=== PATIENT | female | born 1990 | race Caucasian/White ===

== ENCOUNTER → 2018-01-26 | Outpatient (CLI) | payer MEDICAID | LOC: FIMAGING 12:05 | PROVIDERS: ATTEND Family Medicine | DX: R92.8 Other abnormal and inconclusive findings on diagnostic imaging of breast (principal); Z80.3 Family history of malignant neoplasm of breast ==

== ENCOUNTER 2018-04-01 07:50 | Day surgery (SDC) | payer MEDICAID ==
--- NOTE | 2018-03-24 15:31 | GHP ---
[f rep st] HISTORY AND PHYSICAL DATE OF ADMISSION: 04/01/2018 ADMITTING DIAGNOSES: 1. Pelvic pain. 2. Dysmenorrhea. HISTORY OF PRESENT ILLNESS: The patient is a 27-year-old 3, para 3-0-0- 3, who presented to me about 6 months ago for ER followup. She was seen in August of 2017 secondary to worsening bilateral lower abdominal pelvic pain. She states she had pain for 2-1/2 months' duration; it was intermittent and dull and then became constant, sharp and stabbing, and that is what sent her to the emergency room. She had an ultrasound done at [facility] which was normal, as well as blood work, urine, gonorrhea and chlamydia cultures, per patient. There were no records available at the time of the visit. The patient was seen in my office and states pain is about 7/10. She is taking ibuprofen with some relief. She had a Mirena IUD in the past; it was embedded and had to be removed. She admits she cannot remember to take control pills. Her cycles are regular; however, they are heavy. She experiences large clots and heavy flow for 3 days and then spotting for the last 2 days. She does admit to painful cramping throughout the whole menstrual cycle. Discussed at that time keeping a menstrual diary and monitoring the pain. Counseled on endometriosis, which we discussed as a surgical diagnosis, usually treated in conjunction with hormonal treatment, IUD versus OCPs, and surgery with fulguration of endometrial implants. The patient is interested in trying an IUD again. Recommend, Kyleena IUD be placed under ultrasound guidance, and if no improvement in symptoms over 3-6 months, consider a diagnostic laparoscopy. Kyleena IUD was placed under ultrasound guidance without any difficulty in September2017. The patient then presented to the office in January of 2018, and noticed her pain was improved following insertion of Kyleena x 2 months and then over the last 2-3 months the pelvic pain is back again. The pain is normally only during her cycles, but now it is lasting for 2-3 weeks each month. Pain is located bilaterally in lower abdomen and is localized with no radiation. She has only taken ibuprofen and Tylenol. She admits to having cycles with Kyleena, but they are lighther, and also notes increased acne. The patient desire surgery at this time to see what exactly is the cause of her pain , and to see if it is truly endometriosis. The patient has a history of prior C -section x3; also discussed there can be pain with scar tissue. PAST OB HISTORY: She had in 2006, 2012, and 2014. She also had a bilateral tubal ligation at the time of last in 2014. ONLINE MARKETER HISTORY: Age of menarche 10-11 years of age. Cycles are regular, every 28 days for about 5-6 days. Heavy flow with painful cramps. Patient denies history of any exposure to sexually transmitted diseases. She has had an abnormal Pap smear; she had a colposcopy, but no treatment. MEDICATIONS: Include ProAir, Tylenol, Ibuprofen as needed. ALLERGIES: Prednisone. PAST MEDICAL HISTORY: Remarkable for asthma, depression, migraine headaches, chronic pelvic pain. PAST SURGICAL HISTORY: x3 and bilateral tubal ligation at the time of the third . FAMILY HISTORY: Mother with breast and bladder cancer, age 60. SOCIAL HISTORY: The patient is . She lives with her and 3 children. She admits to smoking half pack a day for 12 years, and is not ready to quit. She drinks alcohol 2 times per month and admits to marijuana use once a month. REVIEW OF SYSTEMS: 10-point review of systems is negative. Pertinent positives noted in HPI. LABS: Hemoglobin is 14.5, hematocrit 43.6. PHYSICAL EXAMINATION: VITAL SIGNS: On admission, vital signs are stable. Patient is afebrile. GENERAL: Well-nourished, well-developed female. Alert and oriented x3. CARDIOVASCULAR: Regular rate and rhythm. LUNGS: Clear to auscultation bilaterally. SKIN: Warm, dry without rash. NEURO: Grossly intact. ABDOMEN: Soft, nontender, nondistended. Pfannenstiel incision well healed. PELVIC: Exam is deferred, patient on menses. EXTREMITIES: Normal to inspection without calf tenderness or edema. ASSESSMENT/PLAN: Patient is a 27-year-old 3, para 3-0-0-3, with chronic pelvic pain and dysmenorrhea. 1. Discussed surgery, diagnostic laparoscopy, its limitations, nothing by mouth status, as well as postoperative recovery. 2. Patient is aware that her pain may not be improved or resolved after the surgery and wants to proceed. 3. Surgical consents were obtained. Discussed the risks, benefits, and alternatives, including, but not limited to, bleeding, infection, and damage to surrounding organs. 4. Patient understands all risks and wants to proceed with surgery. 5. Smoking cessation discussed and encouraged prior to surgery. 5. Antibiotics talent acquisition lead to operating room. 6. Sequential compression devices for deep venous thrombosis prophylaxis. /[id number]/MODL MTDD
[2018-04-01] MEDS ORDERED: ceFAZolin 2 GM/DEXTROSE 100 ML IV ONE (08:22)
[2018-04-01] MEDS ORDERED: LIDOCAINE 1% 2 ML INJ ID PRN (08:23)
[2018-04-01] MEDS ORDERED: LR 1,000 ML IV ONE (08:23)
[2018-04-01] MEDS ORDERED: BUPIVACAINE 0.5% 30 ML SDV ONE (08:40)
--- NOTE | 2018-04-01 09:33 | PDANEPAE ---
ANE History of Present Illness Dysmenorrhea, pelvic pain. Here for diagnostic lap and salpingectomy ANE Past Medical History - Cardiovascular History Hx Hypertension: No Hx Arrhythmias: No Hx Chest Pain: No Hx Coronary Artery / Peripheral Vascular Disease: No Hx CHF / Valvular Disease: No Hx Palpitations: No - Pulmonary History Hx COPD: No Hx Asthma/Reactive Airway Disease: Yes Hx Recent Upper Respiratory Infection: No Hx Oxygen in Use at Home: No Hx Sleep Apnea: Yes Sleep Apnea Screening Result - Last Documented: Positive Pulmonary History Comment: INHALER. POS MONTY - NO CPAP - Neurologic History Hx Cerebrovascular Accident: No Hx Seizures: No Hx Dementia: No Neurologic History Comment: MIGRAINES - Endocrine History Hx Diabetes: No - Renal History Hx Renal Disorders: No - Liver History Hx Hepatic Disorders: No - Neurological & Psychiatric Hx Hx Neurological and Psychiatric Disorders: Yes Neurological / Psychiatric History Comment: ANXIETY/DEPRESSION - Cancer History Hx Cancer: No - Congenital Disorder History Hx Congenital Disorders: No - GI History Hx Gastrointestinal Disorders: No - Other Health History Other Health History: NEG - Chronic Pain History Chronic Pain: Yes (UTERINE PAIN) - Surgical History Prior Surgeries: 3 C-SECTIONS ANE Review of Systems Review of Systems: - Exercise capacity METS (RN): 5 METS ANE Patient History - Allergies Allergies/Adverse Reactions: prednisone Allergy (Verified 03/23/18 12:10) Rash - Home Medications Home Medications: Proair Hfa 03/23/18 [Last Taken Unknown] Tylenol 03/23/18 [Last Taken 03/31/18 22:00] - NPO status NPO Since - Liquids (Date): 03/31/18 NPO Since - Liquids (Time): 23:00 NPO Since - Solids (Date): 03/31/18 NPO Since - Solids (Time): 18:00 - Smoking Hx Smoking Status: Heavy smoker - Family Anes Hx Family Hx Anesthesia Complications: NEG ANE Labs/Vital Signs - Vital Signs Blood Pressure: 104/66 Heart Rate: 86 Respiratory Rate: 16 O2 Sat (%): 95 Height: 157.48 cm Weight: 83.915 kg ANE Physical Exam - Airway Neck exam: FROM Mallampati Score: Class 1 Mouth exam: normal dental/mouth exam - Pulmonary Pulmonary: no respiratory distress, no rales or rhonchi - Cardiovascular Cardiovascular: regular rate and rhythym, no murmur, rub, or gallop - ASA Status ASA Status: II ANE Anesthesia Plan Anesthesia Plan: general endotracheal anesthesia
[2018-04-01] MEDS ORDERED: MIDAZOLAM 2 MG/2 ML VIAL IVP ONE (09:34)
--- NOTE | 2018-04-01 09:41 | PDHPUP ---
History & Physical Update H&P update statement: This history and physical update is based on an assessment of the patient which was completed after admission or registration (within 24 hours), but prior to the surgery/procedure. H&P update: H&P reviewed & patient examined, no change in patient's condition since H&P completed
[2018-04-01] MEDS ORDERED: DEXAMETHASONE 4 MG/ML VIAL ONE (09:52)
[2018-04-01] MEDS ORDERED: LIDOCAINE 2% 100 MG/5 ML SYR ONE (09:52)
[2018-04-01] MEDS ORDERED: fentaNYL 250 MCG/5 ML INJ ONE (09:52)
[2018-04-01] MEDS ORDERED: ONDANSETRON 4 MG/2 ML VIAL ONE (09:52)
[2018-04-01] MEDS ORDERED: ROCURONIUM 50 MG/5 ML VIAL ONE (09:52)
[2018-04-01] MEDS ORDERED: PROPOFOL 200 MG/20 ML VIAL ONE ×2 (09:52→11:47)
[2018-04-01] MEDS ORDERED: PHENYLEPHRINE 10 MG/ML SDV ONE (09:53)
[2018-04-01] MEDS ORDERED: KETOROLAC 30 MG/1 ML SDV ONE (09:54)
[2018-04-01] MEDS ORDERED: HYDROmorphONE/DILAUDID 2 MG/ML INJ ONE (11:46)
--- NOTE | 2018-04-01 11:55 | POSTOPPROG ---
Post Op Note Date of Operation: 04/01/18 Surgeon: Amrita Gordon Personal Lines Appraiser: Becca GALLEGOS Anesthesiologist: Suri Navarro Anesthesia: GET(General Endotracheal) Pre-op Diagnosis: Dysmenorrhea; Pelvic pain Post-op Diagnosis: Dysmenorrhea; Pelvic pain; Endometriosis; Pelvic adhesions Indication: 27 y/o with h/o dysmenorrhea and pelvic pain Procedure: Dx Laparoscopy; PRINCESS; Fulguration of endometriosis Findings: Endo implants b/l USL & cul-de-sac; omental curtain to ant abd wall Inf/Abcess present in the surg proc area at time of surgery?: No Depth: Organ Space EBL: Minimal (20cc) Total fluids administered: 1300 cc LR UO: 250 cc clear urine at the end Complications: None Specimen(s): None
[2018-04-01] MEDS ORDERED: LR 500 ML IV PRN (11:59)
[2018-04-01] MEDS ORDERED: oxyCODONE IR 5 MG TAB PO PRN (11:59)
[2018-04-01] MEDS ORDERED: ALBUTEROL 3 ML DEYVIAL IH PRN (11:59)
[2018-04-01] MEDS ORDERED: MEPERIDINE 25 MG/0.5 ML AMP IVP PRN (11:59)
[2018-04-01] MEDS ORDERED: HYDROmorphONE/DILAUDID 2 MG/ML INJ IVP PRN (11:59)
[2018-04-01] MEDS ORDERED: ACETAMINOPHEN 500 MG TAB PO PRN (11:59)
[2018-04-01] MEDS ORDERED: PROMETHAZINE HCL 25 MG/ML INJ IVP PRN (11:59)
[2018-04-01] MEDS ORDERED: fentaNYL 100 MCG/2 ML INJ IVP PRN (11:59)
[2018-04-01] MEDS ORDERED: NALOXONE HCL 0.4 MG/ML INJ IVP PRN (11:59)
--- NOTE | 2018-04-01 12:00 | POSTANESTH ---
Post Anesthetic Evaluation Cardiovascular Status: Normal, Stable Respiratory Status: Normal, Stable Level of Consciousness/Mental Status: Can Participate in Eval, Moderately Sleepy Pain Control: Adequate, Prn Tx Ordered Nausea/Vomiting Control: Adequate, Prn Tx Ordered Complications Possibly Related to Anesthesia: None Noted
[2018-04-01] MEDS ORDERED: DIAZEPAM 5 MG/ML 1 ML SYR ONE (12:20)
[2018-04-01] MEDS: DIAZEPAM 5 MG/ML 1 ML SYR IVP PRN ×2 (13:02→13:17)
--- NOTE | 2018-04-01 13:41 | GOP ---
[f rep st] OPERATIVE REPORT DATE OF OPERATION: 04/01/2018 SURGEON: Amrita Gordon DO AUTOMATION TESTER: EL Bran ANESTHESIA: General endotracheal. ANESTHESIOLOGIST: Han Navarro DO PREOPERATIVE DIAGNOSIS: 1. Dysmenorrhea. 2. Pelvic pain. POSTOPERATIVE DIAGNOSIS: 1. Dysmenorrhea. 2. Pelvic pain. 3. Pelvic adhesions, omental curtain. 4. Endometriosis. PROCEDURE PERFORMED: 1. Diagnostic laparoscopy. 2. Lysis of adhesions. 3. Fulguration of endometriosis. FINDINGS: Grossly normal-appearing uterus, bilateral tubes and ovaries. There were endometrial implants visualized on the bilateral uterosacral ligaments, as well as implants in the posterior cul-de-sac. There were adhesions noted in the anterior cul-de-sac near the bladder, secondary to previous x3. The upper abdomen, liver and gallbladder appeared normal. Appendix appeared tethered to sidewall. SPECIMENS: None. ESTIMATED BLOOD LOSS: 20 cc. INDICATIONS: Patient is a 27-year-old, G3, P3 with history of dysmenorrhea and pelvic pain. The patient had Kyleena IUD placed about 6 months ago, and noted improvement in her pain for about 2 months. She then started getting pain again and noticed bilateral lower pelvic pain not only during cycles, but now 2 to 3 weeks out of the month. Minimal relief with ibuprofen and Tylenol. Discussed proceeding to the operating room to find out the exact etiology of her pain, suspect endometriosis. Discussed risks, benefits, and alternatives of the procedure, including, but not limited to bleeding, infection, and damage to surrounding organs. Patient understands all risks at this time and wants to proceed with the surgery. Patient was properly consented. DESCRIPTION OF PROCEDURE: Patient was taken to the operating room where general anesthesia was obtained without difficulty. The patient was then placed in dorsal lithotomy position. A bimanual exam revealed a mid position, normal-size uterus, and no adnexal masses; IUD strings could be felt. She was then prepped and draped in the usual sterile fashion. Roblero catheter was placed at this time. After WHO time-out was performed, an open ended speculum was placed in the vagina. The anterior lip of the cervix was grasped with a single-tooth tenaculum. IUD strings were visualized at this time and an acorn tenaculum was then placed transcervically allowing us to manipulate the uterus. We then turned our attention to the abdomen. The infraumbilical region was infiltrated with 0.5% plain Marcaine. Then, a stab wound incision was made with a scalpel. Veress needle was placed into this incision while tenting the abdominal wall without any difficulty. Aspiration was negative and there was an opening pressure of less than 6 mmHg. About 3 L of CO2 gas was used to create a pneumoperitoneum. The Veress needle was then removed. A #5 trocar and 0-degree scope was then placed into this incision with direct visualization into peritoneum and abdominal cavity. After infiltration with more 0.5% plain Marcaine, 5 mm skin incisions were made on both the left and right side of the lower abdomen and trocars were then placed under direct visualization without difficulty. Patient was then placed in Trendelenburg position. At this point, an omental curtain was seen adhered to the anterior abdominal wall. Using the LigaSure, the omentum was taken down from the anterior abdominal wall and hemostasis was noted. Pelvic anatomy was finally visualized. The pelvic findings are noted as above. An intraoperative consult by Dr. Paxton Carbajal was done who felt that the appendix was normal appearing and did not recommend removal at this time. We then turned our attention to fulguration of endometriosis. The endometrial implants on the bilateral uterosacral ligaments were cauterized using the monopolar J-hook, and then, the implants in the posterior cul-de-sac were cauterized. Endometrial implants noted on the anterior fundal area of the uterus were cauterized as well. Bilateral ureters were seen at the end of the procedure with peristalsis. Reinspection of the omentum and anterior abdominal wall revealed hemostasis. All trocars were then removed from the abdomen and all gas was allowed to escape. Incisions were then closed with Dermabond. All instruments were removed from the vagina and there was no bleeding noted from the cervix. Roblero catheter was removed and noted with clear urine. Patient tolerated the procedure well. There were no complications. Sponge, lap, needle, and instrument counts correct x2. Patient was then taken out of dorsal lithotomy position, awakened and sent to recovery room in stable condition. IV FLUIDS: 1300 cc LR. URINE OUTPUT: 250 cc of clear urine at the end of the procedure. COMPLICATIONS: None. /[id number]/MODL MTDD
[2018-04-01] MEDS ORDERED: oxyCODONE IR 5 MG TAB ONE (14:03)
[2018-04-01 14:42] VITALS: BP 119/70
--- NOTE | 2018-04-04 03:23 | GOP ---
[f rep st] OPERATIVE REPORT DATE OF OPERATION: 04/01/2018 SURGEON: Jeet Carbajal MD PREOPERATIVE DIAGNOSIS: Possible abnormal appendix. POSTOPERATIVE DIAGNOSIS: Possible abnormal appendix. PROCEDURE PERFORMED: Laparoscopy. FINDINGS: No obvious appendiceal pathology INDICATIONS: The patient was in surgery undergoing a treatment for endometriosis. I was consulted for evaluation. DESCRIPTION OF PROCEDURE: The patient was in the operating room. I scrubbed in , and using laparoscopic graspers, I elevated the appendix and freed it up from minor adhesions. Some spots on the surface of the appendix were removed easily and did not appear to be true endometriosis. The appendix appeared to be benign and was left in place. At that point, we turned the case back over to Dr. Gordon. There were no complications. /[id number]/MODL MTDD
--- NOTE | 2018-04-04 03:28 | GCON ---
[f rep st] CONSULTATION DATE OF CONSULTATION: 04/01/2018 Patient is a 27-year-old female who was in the OR undergoing laparoscopic treatment for endometriosis . I was consulted for evaluation of her appendix. The appendix was elongated, but the mesentery was not thickened. There were some spots on the appendix mesentery, but those wiped off rather easily a nd were not felt to be actual true endometriosis. The appendix was soft, and I felt that it was not inflamed and did not need to be removed. /[id number]/MODL
== END 2018-04-01 14:24 | disposition home or self-care (01) ==
LOC: FSGY 07:50
PROVIDERS: ATTEND Obstetrics & Gynecology
DX: N80.3 Endometriosis of pelvic peritoneum (principal); N73.6 Female pelvic peritoneal adhesions (postinfective); R10.2 Pelvic and perineal pain; N94.6 Dysmenorrhea, unspecified; F17.210 Nicotine dependence, cigarettes, uncomplicated; Z80.3 Family history of malignant neoplasm of breast; Z80.52 Family history of malignant neoplasm of bladder
CPT/HCPCS: J0690; J1100; J1170; J1885; J2001; J2250; J2370; J2405; J2704; J3010; J3360

== ENCOUNTER 2018-08-04 05:45 | Observation (INO) | payer MEDICAID | END 2018-08-06 15:25 | disposition home or self-care (01) | LOC: F3E 05:45 → FOB 14:15 ==